=== PATIENT | female | born 1935 | race Caucasian/White ===

== ENCOUNTER 2019-04-12 13:54 | Inpatient (IN) ==
[2019-04-12] MEDS ORDERED: Ipratropium/Albuterol Neb 3 ML IH ONE ×2 (14:07→14:37)
[2019-04-12] MEDS ORDERED: methylPREDNISolone 125 MG/2 ML VIAL IVP ONE (14:07)
[2019-04-12 14:26] LABS: Basophils % 0.2 %; Hematocrit 49.6 % (35.3-44.9); Hemoglobin 15.2 g/dL (11.5-15.4); Immature Granulocytes % 0.4 % (0-4); Lymphocytes # 1.3 K/mcL (0.6-4.6); Mean Corpuscular HGB Conc 30.6 g/dL (31.6-35.5); Mean Corpuscular Hemoglobin 29.9 pg (28.0-33.3); Mean Corpuscular Volume 97.4 fL (83.0-100.0); Mean Platelet Volume 10.8 fL (9.4-12.4); Monocytes # 2.2 K/mcL (0.0-1.3); Monocytes % 10.6 %; Neutrophils # 17.4 K/mcL (1.6-8.9); Platelet Count 250 K/mcL (140-400); Red Blood Count 5.09 M/mcL (3.82-4.97); Red Cell Distribution Width 13.3 % (11.5-14.5); Segmented Neutrophils % 82.8 %
[2019-04-12 14:44] LABS: Calcium 9.3 mg/dL (8.6-10.3)
[2019-04-12 14:51] LABS: Troponin I 0.05 ng/mL (< 0.04)
[2019-04-12] MEDS ORDERED: cefTRIAXone 1,000 MG in 0.9 % Sodium Chloride Mini Bag 100 ML IVPB ONE (14:56)
[2019-04-12 15:27] LABS: Bilirubin,Urine Small (Negative); Blood,Urine Moderate (Negative); Clarity,Urine Cloudy (Clear); Color,Urine Yellow (Yellow); Glucose,Urine (UA) Normal (Normal); Ketones,Urine Negative (Negative); Leukocyte Esterase,Urine Small (Negative); Nitrite,Urine Negative (Negative); Protein,Urine >=300 mg/dL (Neg-Trace); Specific Gravity,Urine >= 1.030 (1.010-1.025); Urobilinogen,Urine Normal (Normal)
[2019-04-12 15:35] LABS: Bacteria,Urine Many per hpf (None-Few); Squamous Epithelial Cell,Urine Many per lpf (None-Few)
[2019-04-12] MEDS ORDERED: Mag Hydrox/Al Hydrox/Simeth 30 ML UDC PO PRN (16:12)
[2019-04-12] MEDS ORDERED: Naloxone 0.4 MG/ML INJ IVP PRN (16:12)
[2019-04-12] MEDS ORDERED: Ondansetron 4 MG/2 ML VIAL IVP PRN (16:12)
[2019-04-12] MEDS ORDERED: MOM Conc 10 ML UD.LIQ PO PRN (16:12)
[2019-04-12] MEDS ORDERED: Acetaminophen 325 MG TABLET PO PRN (16:12)
[2019-04-12] MEDS ORDERED: cefTRIAXone 1,000 MG in Water for inj. (sterile) 10 ML IVP ONE (16:23)
[2019-04-12] MEDS ORDERED: *HR* OxyCODONE/APAP 5/325 TABLET PO PRN (16:31)
[2019-04-12] MEDS ORDERED: Famotidine 20 MG TABLET PO PRN (16:31)
[2019-04-12] MEDS ORDERED: NON-FORMULARY MEDICATION 1 EACH EACH (Oxygen 2 L) NS SCH (16:45)
[2019-04-12] MEDS: Benzonatate 100 MG CAPSULE PO SCH (18:51)
[2019-04-12] MEDS: Azithromycin 500 MG in 0.9 % Sodium Chloride 250 ML IVPB SCH (18:51)
[2019-04-12] MEDS: MethylPREDNISolone 40 MG/ML VIAL IVP SCH ×2 (18:51→23:49)
[2019-04-12] MEDS: Ipratropium/Albuterol Neb 3 ML IH SCH (20:30)
[2019-04-12] MEDS: Melatonin 3 MG TABLET PO SCH (20:45)
[2019-04-12] MEDS ORDERED: NON-FORMULARY MEDICATION 1 EACH EACH (Melatonin 5 MG) PO SCH (21:00)
[2019-04-12] MEDS ORDERED: DONEPEZIL HCL 23 MG PO SCH (21:00)
[2019-04-12] MEDS: *HR* Heparin 5,000 UNIT/ML VIAL SQ SCH (23:49)
[2019-04-13] MEDS: Ipratropium/Albuterol Neb 3 ML IH SCH ×6 (00:17→20:39)
[2019-04-13] MEDS: MethylPREDNISolone 40 MG/ML VIAL IVP SCH ×3 (04:57→17:43)
[2019-04-13 06:15] LABS: Hematocrit 43.4 % (35.3-44.9); Hemoglobin 13.1 g/dL (11.5-15.4); Mean Corpuscular HGB Conc 30.2 g/dL (31.6-35.5); Mean Corpuscular Hemoglobin 29.3 pg (28.0-33.3); Mean Corpuscular Volume 97.1 fL (83.0-100.0); Mean Platelet Volume 11.6 fL (9.4-12.4); Platelet Count 208 K/mcL (140-400); Red Blood Count 4.47 M/mcL (3.82-4.97); Red Cell Distribution Width 13.4 % (11.5-14.5); White Blood Count 13.9 K/mcL (4.3-11.1)
[2019-04-13 06:37] LABS: Calcium 8.7 mg/dL (8.6-10.3); Magnesium 1.6 mg/dL (1.6-2.6); Potassium 3.9 mEq/L (3.5-5.1)
[2019-04-13] MEDS ORDERED: *HR* Dextrose 50 % in Water (Syg) 50 ML SYRINGE IVP PRN (08:05)
[2019-04-13] MEDS ORDERED: D5% in Water 1,000 ML IVC PRN (08:05)
[2019-04-13] MEDS ORDERED: Dextrose Gel 15 GM/37.5 ML TUBE PO PRN ×2 (08:05)
[2019-04-13] MEDS ORDERED: 0.9 % Sodium Chloride 500 ML IV ONE (08:51)
[2019-04-13] MEDS: Benzonatate 100 MG CAPSULE PO SCH (09:42)
[2019-04-13] MEDS: Metoprolol XL (24 HR) Succ 50 MG TAB.ER.24H PO SCH (09:42)
[2019-04-13] MEDS: Multivit/Ca/Min/Fe/FA 1 TAB TABLET PO SCH (09:43)
[2019-04-13] MEDS: Loratadine 10 MG TABLET PO SCH (09:44)
[2019-04-13] MEDS: *HR* Heparin 5,000 UNIT/ML VIAL SQ SCH ×2 (09:44→17:42)
[2019-04-13] MEDS: Cyanocobalamin (B-12) 1,000 MCG TABLET PO SCH (09:44)
[2019-04-13 09:45] LABS: Creatinine,Urine 134 mg/dL
[2019-04-13] MEDS: cefTRIAXone 1,000 MG in Water for inj. (sterile) 10 ML IVP SCH (09:45)
[2019-04-13] MEDS: Insulin LISPRO 300 UNITS/3 ML VIAL SQ SCH ×3 (09:46→17:55)
[2019-04-13 10:43] LABS: Adenovirus Not Detected (Not Detect); Bordetella Pertussis Not Detected (Not Detect); Chlamydophila pneumoniae Not Detected (Not Detect); Coronavirus 229E Not Detected (Not Detect); Coronavirus HKU1 Not Detected (Not Detect); Coronavirus NL63 Not Detected (Not Detect); Coronavirus OC43 Not Detected (Not Detect); Human Metapneumovirus Not Detected (Not Detect); Human Rhinovirus/Enterovirus Not Detected (Not Detect); Influenza A Subtype 2009 H1 Not Detected (Not Detect); Influenza A Untypeable Not Detected (Not Detect); Influenza B Not Detected (Not Detect); Mycoplasma pneumoniae Not Detected (Not Detect); Parainfluenza Virus 1 Not Detected (Not Detect); Parainfluenza Virus 2 Not Detected (Not Detect); Parainfluenza Virus 3 Not Detected (Not Detect); Parainfluenza Virus 4 Not Detected (Not Detect); Respiratory Syncytial Virus Not Detected (Not Detect)
[2019-04-13] MEDS ORDERED: Insulin LISPRO 300 UNITS/3 ML VIAL SQ SCH (12:00)
[2019-04-13 12:47] LABS: Estimated Average Glucose 114 mg/dl
[2019-04-13] MEDS: 0.9 % Sodium Chloride 1,000 ML IV SCH ×2 (16:00→22:34)
[2019-04-13] MEDS ORDERED: *HR* Dextrose 50 % in Water (Vial) 50 ML VIAL IVP PRN (16:30)
[2019-04-13] MEDS: Azithromycin 500 MG in 0.9 % Sodium Chloride 250 ML IVPB SCH (17:43)
[2019-04-13] MEDS: Melatonin 3 MG TABLET PO SCH (20:25)
[2019-04-14] MEDS: MethylPREDNISolone 40 MG/ML VIAL IVP SCH ×4 (00:01→16:08)
[2019-04-14] MEDS: *HR* Heparin 5,000 UNIT/ML VIAL SQ SCH ×3 (00:01→16:08)
[2019-04-14] MEDS: Ipratropium/Albuterol Neb 3 ML IH SCH ×6 (00:36→19:55)
[2019-04-14] MEDS: 0.9 % Sodium Chloride 1,000 ML IV SCH (06:34)
[2019-04-14] MEDS: cefTRIAXone 1,000 MG in Water for inj. (sterile) 10 ML IVP SCH (08:01)
[2019-04-14] MEDS: Loratadine 10 MG TABLET PO SCH (08:03)
[2019-04-14] MEDS: Cyanocobalamin (B-12) 1,000 MCG TABLET PO SCH (08:03)
[2019-04-14] MEDS: Multivit/Ca/Min/Fe/FA 1 TAB TABLET PO SCH (08:03)
[2019-04-14] MEDS: Benzonatate 100 MG CAPSULE PO SCH (08:03)
[2019-04-14] MEDS: Insulin LISPRO 300 UNITS/3 ML VIAL SQ SCH ×3 (08:04→16:01)
[2019-04-14] MEDS: Metoprolol XL (24 HR) Succ 50 MG TAB.ER.24H PO SCH (10:27)
[2019-04-14 15:33] LABS: Hematocrit 38.1 % (35.3-44.9); Hemoglobin 11.5 g/dL (11.5-15.4); Mean Corpuscular HGB Conc 30.2 g/dL (31.6-35.5); Mean Corpuscular Hemoglobin 29.7 pg (28.0-33.3); Mean Corpuscular Volume 98.4 fL (83.0-100.0); Mean Platelet Volume 11.4 fL (9.4-12.4); Platelet Count 189 K/mcL (140-400); Red Blood Count 3.87 M/mcL (3.82-4.97); Red Cell Distribution Width 13.3 % (11.5-14.5); White Blood Count 15.9 K/mcL (4.3-11.1)
[2019-04-14 15:54] LABS: Calcium 8.1 mg/dL (8.6-10.3); Potassium 3.5 mEq/L (3.5-5.1)
[2019-04-14] MEDS: Azithromycin 500 MG in 0.9 % Sodium Chloride 250 ML IVPB SCH (16:07)
[2019-04-14] MEDS ORDERED: 0.9 % Sodium Chloride 500 ML IV ONE (16:16)
[2019-04-14] MEDS ORDERED: 0.9 % Sodium Chloride 1,000 ML IV ONE (16:23)
[2019-04-14] MEDS ORDERED: 0.9 % Sodium Chloride 500 ML IVC ONE (16:51)
[2019-04-14] MEDS ORDERED: 0.9 % Sodium Chloride 1,000 ML IVC SCH (17:00)
[2019-04-14] MEDS: Melatonin 3 MG TABLET PO SCH (21:36)
[2019-04-14 23:17] VITALS: BP 115/64
[2019-04-15] MEDS: Ipratropium/Albuterol Neb 3 ML IH SCH (00:55)
[2019-04-15 09:54] LABS: Mycoplasma pneumoniae IgG 0.13 U/L (<=0.09)
== END 2019-04-15 01:08 | disposition other institution (70) | DRG 191 ==
LOC: EMEROOPIK 13:54 → INPPIK 13:54
PROVIDERS: ADMIT Family Medicine; ATTEND Family Medicine